=== PATIENT | female | born 2000 | race African-American/Black ===

== ENCOUNTER 2022-09-24 12:28 | Emergency (ER) | payer MEDICAID ==
[~2022-09-24] VITALS: Ht 167.6 cm; Wt 76.0 kg
[2022-09-24 13:41] LABS: HEMATOCRIT. 37.4 % (36.0-48.0); HEMOGLOBIN. 12.8 g/dL (12.0-16.0); MEAN CORPUSCULAR HEMOGLOBIN 31.3 pg (28.0-32.0); MEAN CORPUSCULAR VOLUME 91.1 fL (81.0-99.0); MEAN PLATELET VOLUME 6.9 fl (7.4-10.4); PLATELET 287 x1000/uL (130-400); RED CELL DISTRIBUTION WIDTH 12.9 % (11.6-14.6)
[2022-09-24 13:48] LABS: CHLORIDE 103 mEq/L (98-107)
[2022-09-24 14:19] LABS: HCG SCREEN NEGATIVE
[2022-09-24 14:22] LABS: PLATELET ESTIMATE NORMAL
[2022-09-24] MEDS ORDERED: ONDA4TAB11 PO (15:06)
[2022-09-24 15:36] VITALS: BP 126/78
== END 2022-09-24 15:37 | disposition home or self-care (01) ==
LOC: ER 12:56
DX: F19.10 Other psychoactive substance abuse, uncomplicated (principal); R11.10 Vomiting, unspecified; R51.9 Headache, unspecified
CPT/HCPCS: 36415; 80053; 84703; 85025; 99283

== ENCOUNTER 2024-08-12 15:47 | Emergency (ER) | payer MEDICAID ==
[~2024-08-12] VITALS: Ht 172.7 cm; Wt 68.0 kg
[~2024-08-12 15:47] MED LIST: ONDA-239 PO
[2024-08-12 15:48] VITALS: PULSE 73; RESP 18; O2SAT 99
[2024-08-12 15:52] VITALS: BP 134/70; TEMP 36.7; O2SAT 100
[2024-08-12 17:03] LABS: CLARITY URINE CLEAR (CLEAR); COLOR URINE YELLOW (YELLOW); GLUCOSE URINE NEGATIVE (NEGATIVE); KETONES URINE NEGATIVE (NEGATIVE); LEUKOCYTE ESTERASE URINE NEGATIVE (NEGATIVE); NITRITE URINE NEGATIVE (NEGATIVE); OCCULT BLOOD URINE 3+ (NEGATIVE); PROTEIN URINE NEGATIVE (NEGATIVE); SPECIFIC GRAVITY URINE 1.008 (1.005-1.030); UROBILINOGEN URINE 0.2 E.U./dL (0.2-1.0)
[2024-08-12 17:04] LABS: BASOPHILS % 0.5 % (0.0-2.0); EOSINOPHILS % 5.8 % (0.0-5.0); HEMATOCRIT. 40.9 % (36.0-48.0); HEMOGLOBIN. 13.6 g/dL (12.0-16.0); MEAN CORPUSCULAR HEMOGLOBIN 31.4 pg (28.0-32.0); MEAN CORPUSCULAR HGB CONC 33.3 g/dL (31.0-37.0); MEAN CORPUSCULAR VOLUME 94.3 fL (81.0-99.0); MEAN PLATELET VOLUME 7.1 fl (7.4-10.4); MONOCYTES % 6.4 % (2.0-8.0); NEUTROPHILS % 67.3 % (40.0-76.0); PLATELET 329 x1000/uL (130-400); RED BLOOD CELL COUNT 4.33 mill/uL (4.2-5.4); RED CELL DISTRIBUTION WIDTH 13.2 % (11.6-14.6); WHITE BLOOD COUNT 7.9 x1000/uL (4.5-11.0)
[2024-08-12 17:06] LABS: CHLORIDE 104 mEq/L (98-107); POTASSIUM 3.7 mEq/L (3.5-5.1); SODIUM 137 mEq/L (136-145)
[2024-08-12 17:07] LABS: CALCIUM 8.9 mg/dL (8.7-10.4); CARBON DIOXIDE 28 mEq/L (21-32)
[2024-08-12 17:10] LABS: HCG SCREEN NEGATIVE
[2024-08-12 17:12] LABS: GLUCOSE 96 mg/dL (70-105); UREA NITROGEN BLOOD 9 mg/dL (9-23)
[2024-08-12 17:16] LABS: BACTERIA URINE NONE SEEN; RBC URINE 25-50 /hpf (0-2); SQUAMOUS EPITHELIAL CELL URINE FEW /lpf (RARE/1+); WBC URINE NONE SEEN /hpf (0-2)
[2024-08-12] MEDS: CEFTRIAXONE SODIUM 500MG VIAL IM ONE (17:45)
[2024-08-12] MEDS ORDERED: DOXY100C5 MT (18:35)
== END 2024-08-12 18:38 | disposition home or self-care (01) ==
LOC: ER 15:47
DX: N93.9 Abnormal uterine and vaginal bleeding, unspecified (principal); R10.2 Pelvic and perineal pain; F10.90 Alcohol use, unspecified, uncomplicated; Y90.9 Presence of alcohol in blood, level not specified
CPT/HCPCS: 99285; 76830; 76856; 80048; 81003; 81025; 84703; 85025; 36415; 96372; J0696